=== PATIENT | male | born 1965 | race Caucasian/White ===

== ENCOUNTER 2020-11-05 06:02 | Inpatient (IN) | payer BC ==
[~2020-11-05] VITALS: Ht 170.2 cm; Wt 108.4 kg
[~2020-11-05 06:02] MED LIST: IRBE150T7 PO; LIDOCAINE 1% MDV 20ML VIAL SQ PRN; LR 1,000 ML IV ONE; OMEP10CASR PO; THERTAB52 PO; ceFAZolin SOD 2 GM in IV 1 EA IV ONE
[2020-11-05] MEDS ORDERED: MIDAZOLAM INJ 2MG/2ML VIAL (J2250 PER 1MG) As Ordered ONE (06:46)
[2020-11-05] MEDS ORDERED: HYDROmorphone HCL 2 MG/ML 1ML VIAL (J1170) As Ordered ONE (06:47)
[2020-11-05] MEDS ORDERED: ePHEDrine SULFATE 25 MG/5 ML(5MG/ML) SYRINGE As Ordered ONE (06:47)
[2020-11-05] MEDS ORDERED: ACETAMINOPHEN 1000MG 100ML IV BTL (OFIRMEV) (J0131 PER 10MG) As Ordered ONE (06:47)
[2020-11-05] MEDS ORDERED: PHENYLephrine 500MCG 5ML (100MCG/ML) SYRINGE As Ordered ONE (06:47)
[2020-11-05] MEDS ORDERED: fentaNYL 250 MCG/5 ML INJECTION (J3010) As Ordered ONE (06:47)
[2020-11-05] MEDS ORDERED: ROCURONIUM BROMIDE 50 MG/5 ML VIAL As Ordered ONE ×2 (06:48→12:17)
[2020-11-05] MEDS ORDERED: ONDANSETRON 4MG/2ML VIAL As Ordered ONE (06:48)
[2020-11-05] MEDS ORDERED: LIDOCAINE 2% 100MG/5ML SDV (FOR ANES.) As Ordered ONE (06:48)
[2020-11-05] MEDS ORDERED: propofoL 200 MG/20 ML VIAL As Ordered ONE (06:48)
[2020-11-05] MEDS ORDERED: SUGAMMADEX SODIUM 500 MG/5 ML VIAL (BRIDION) As Ordered ONE (06:48)
[2020-11-05] MEDS ORDERED: dexameTHASONE 4 MG/ML 1ML VIAL (J1100 PER 1MG) As Ordered ONE (06:48)
[2020-11-05] MEDS ORDERED: BUPIVACAINE HCL 0.25% 30ML VIAL As Ordered ONE (07:15)
[2020-11-05] MEDS ORDERED: LIDOCAINE 1% SDV 30ML VIAL As Ordered ONE (07:15)
[2020-11-05] MEDS ORDERED: HEPARIN SOD (PORCINE) 5000UNITS/ML 1ML VIAL/SYRINGE SQ ONE (07:20)
[2020-11-05] MEDS: IRBESARTAN 150MG TAB PO SCH (09:00)
[2020-11-05] MEDS: DOCUSATE SODIUM 100MG CAPSULE PO SCH ×2 (09:00→21:00)
[2020-11-05] MEDS ORDERED: ACETAMINOPHEN TAB 650MG DOSE (2X325MG) PO PRN (12:00)
[2020-11-05] MEDS ORDERED: MORPHINE 2 MG/ML 1ML VIAL (J2270) IV PRN (12:00)
[2020-11-05] MEDS ORDERED: NS 1,000 ML IV SCH (12:00)
[2020-11-05] MEDS ORDERED: ONDANSETRON 4MG/2ML VIAL IV PRN ×2 (12:00→17:45)
[2020-11-05] MEDS ORDERED: PERCOCET 5MG/325MG TAB PO PRN ×2 (12:00)
--- NOTE | 2020-11-05 17:41 | ROOPDOC ---
[facility] Report Of Operation Report of Operation DATE OF PROCEDURE: 11/05/20 PREPROCEDURE DIAGNOSIS: Prostate cancer. POSTPROCEDURE DIAGNOSIS: Prostate cancer. PROCEDURE: Robotic-assisted laparoscopic radical prostatectomy with bilateral pelvic lymph node dissection. SURGEON: Benjamin Dejesus MD RESIDENT ASSISTANT: Eloisa Franco NP ANESTHESIA: General. OPERATIVE INDICATIONS: This is a 55 year old male with clinical T1c Hayward 9 prostate cancer. After a discussion of the options for treatment, he elected to undergo the above procedure. DESCRIPTION OF PROCEDURE: The patient was brought to the operating room and general anesthesia was induced. Prophylactic antibiotics were infused. He was then placed in the dorsal lithotomy position and prepped and draped in the usual sterile fashion. At this point, a Johnson catheter was inserted into the bladder and the balloon was filled with 10 mL of sterile water. We then made a midline incision just above the umbilicus for an 8 mm port. A Veress needle was utilized to achieve pneumoperitoneum. Next, an 8 mm port was inserted into the incision and subsequently a camera was inserted. There were no injuries from the Veress needle or initial trocar placement. At this point, we placed the remaining ports, including a 12 mm teacher's assistant port and then three robotic ports in the usual configuration. Once all the ports were placed, the robot was docked. Lysis of adhesions between the sigmoid colon and abdominal wall was then performed. The bladder was then released from the anterior abdominal wall using electrocautery. Once the bladder was dropped, the fat overlying the prostate was cleared using electrocautery. The superficial dorsal vein was controlled with electrocautery. The endopelvic fascia was opened on both sides and the dorsal venous complex was cleared. Next, a #0 Vicryl [id number] stitch was placed around the dorsal venous complex. Once that was done, the bladder was opened and dissected away from the prostate. At this point, the prostate was lifted up. The vasa deferentia were identified in the midline. They were then ligated and transected. The seminal vesicles were also dissected off bilaterally. The rectum was safely mobilized away from the prostate. Bilateral prostatic pedicles were taken using the Harmonic scalpel. The pedicles were carried towards the apex. After taking care of the pedicles and mobilizing the rectum off the prostate below, the prostate was only connected by the urethra. At this point, the dorsal venous complex was transected with electrocautery. The urethra was then opened and the catheter was withdrawn and the posterior urethra was transected, thus freeing the prostate. At this point, we checked for hemostasis and it did appear very good. Next, we performed bilateral pelvic lymph node dissection. This was done in a standard fashion. The limits of dissection were the iliac vein proximally, the obturator nerve distally, the pelvic sidewall laterally, and the bladder media lly. All lymphatic tissue within these limits was removed. I performed the same procedure on both the right and left sides. Hemostasis was then obtained with bipolar electrocautery. The lymphatic packets were then placed in separate Endo Catch bags for future retrieval. Once hemostasis was confirmed, I then moved on to perform the vesicourethral anastomosis. This was performed with a Quill stitch in a running fashion. Once this was done, the final #20-Portuguese Johnson catheter was placed. The balloon was filled with 15 mL of sterile water. Upon completion of the vesicourethral anastomosis, it was tested by filling the bladder with sterile saline water. The anastomosis appeared to be watertight. At this point, the prostate and seminal vesicles were placed in an Endo Catch bag for future retrieval. Next, a Mohan- Jones drain was brought in through the left robotic port skin site and the drain was positioned anterior to the bladder. The robot was then undocked. A [place]-Cee fascial closure device was utilized to place a #0 Vicryl suture between the fascia of the 12 mm teacher's assistant port. The drain was secured to the skin with #2-0 Ethilon suture. The prostate, as well as the lymphatic packets were then extracted from the camera port site after the skin was e xtended. The fascia in this incision was then closed with a running #0 Vicryl stitch. I then looked back in the abdomen and no intraabdominal contents were caught in the extraction site fascial closure. Next, all the remaining ports were removed and there did not appear to be any bleeding from any of the port sites. The previously placed #0 Vicryl free ties through the teacher's assistant port were then tied down and all incisions were irrigated. All of the incisions were then closed with running subcuticular #4-0 Monocryl sutures. Local anesthesia was applied. Dermabond was then applied to the incisions. This marked the conclusion of the procedure. The patient was then taken out of the dorsal lithotomy position, awakened from anesthesia and transported to the recovery room in stable condition. ESTIMATED BLOOD LOSS: 250 mL. COMPLICATIONS: None. SPECIMENS: Prostate and seminal vesicles, right pelvic lymph nodes, left pelvic lymph nodes. PLAN: The patient will be admitted to the hospital postoperatively, and he will likely be discharged home within the next 1-2 days. BENJAMIN DEJESUS MD Nov 05, 2020 12:22
[2020-11-05] MEDS ORDERED: LR 1,000 ML IV SCH (17:45)
[2020-11-05] MEDS ORDERED: fentaNYL 100 MCG/2 ML INJECTION (J3010) IV PRN (17:45)
[2020-11-05] MEDS ORDERED: oxyCODONE 5MG TAB PO PRN (17:45)
[2020-11-05] MEDS ORDERED: HYDROMORPHONE HCL 0.5 MG/ 0.5 ML SYRINGE (J1170 PER 1) IV PRN (17:55)
[2020-11-05 18:14] LABS: HEMATOCRIT 45.3 % (42.0-52.0); MEAN CORPUSCULAR HEMOGLOBIN 31.4 pg (27.0-33.0); MEAN CORPUSCULAR HGB CONC 33.1 g/dl (32.0-36.5); MEAN CORPUSCULAR VOLUME 94.8 fl (80.0-96.0); PLATELET COUNT, AUTOMATED 273 10^3/uL (150-450); RED BLOOD COUNT 4.78 10^6/uL (4.30-6.10); WHITE BLOOD COUNT 16.2 10^3/uL (4.0-10.0)
[2020-11-05 18:26] LABS: BLOOD UREA NITROGEN 15 MG/DL (7-18); CALCIUM LEVEL 8.3 MG/DL (8.5-10.1); CARBON DIOXIDE LEVEL 23 MEQ/L (21-32); CHLORIDE LEVEL 106 MEQ/L (98-107); CREATININE FOR GFR 1.26 MG/DL (0.70-1.30); GLOMERULAR FILTRATION RATE > 60.0 (>56); GLUCOSE, FASTING 163 MG/DL (70-100); POTASSIUM SERUM 3.7 MEQ/L (3.5-5.1); SODIUM LEVEL 139 MEQ/L (136-145)
[2020-11-05 19:30] VITALS: BP 144/90
[2020-11-05 20:00] VITALS: BP 146/88
[2020-11-05 20:35] VITALS: BP 147/92
[2020-11-05] MEDS: ceFAZolin SOD 1 GM in D5W MINI-BAG PLUS 50 ML IV SCH (21:10)
[2020-11-05] MEDS: HEPARIN SOD (PORCINE) 5000UNITS/ML 1ML VIAL/SYRINGE SC SCH (22:00)
[2020-11-05 23:00] VITALS: BP 144/100
[2020-11-05 23:19] VITALS: BP 141/89
[2020-11-06 01:06] VITALS: BP 157/96
[2020-11-06] MEDS: ceFAZolin SOD 1 GM in D5W MINI-BAG PLUS 50 ML IV SCH (04:09)
[2020-11-06] MEDS: HEPARIN SOD (PORCINE) 5000UNITS/ML 1ML VIAL/SYRINGE SC SCH (06:09)
[2020-11-06 06:13] VITALS: BP 157/99
[2020-11-06 06:56] LABS: HEMATOCRIT 42.7 % (42.0-52.0); HEMOGLOBIN 14.4 g/dl (13.5-17.5); MEAN CORPUSCULAR HEMOGLOBIN 31.8 pg (27.0-33.0); MEAN CORPUSCULAR HGB CONC 33.7 g/dl (32.0-36.5); MEAN CORPUSCULAR VOLUME 94.3 fl (80.0-96.0); PLATELET COUNT, AUTOMATED 259 10^3/uL (150-450); RED BLOOD COUNT 4.53 10^6/uL (4.30-6.10); WHITE BLOOD COUNT 16.3 10^3/uL (4.0-10.0)
[2020-11-06 07:21] LABS: BLOOD UREA NITROGEN 16 MG/DL (7-18); CALCIUM LEVEL 8.5 MG/DL (8.5-10.1); CARBON DIOXIDE LEVEL 27 MEQ/L (21-32); CHLORIDE LEVEL 106 MEQ/L (98-107); GLOMERULAR FILTRATION RATE > 60.0 (>56); GLUCOSE, FASTING 131 MG/DL (70-100); POTASSIUM SERUM 4.3 MEQ/L (3.5-5.1); SODIUM LEVEL 137 MEQ/L (136-145)
[2020-11-06] MEDS ORDERED: oxyBUTYnin 5 MG TAB PO PRN (07:30)
--- NOTE | 2020-11-06 07:46 | IPNPDOC ---
Subjective Review oF Systems Chief Complaint The patient is a 55-year-old male admitted with a reason for visit of Prostate Cancer. Events since Last Encounter No acute events o/n. Noting a moderate amount of lower pelvic pressure this morning. Patient also had the onset of moderate L calf pain that radiated up his leg. Has not ambulated yet. Denies n/v. No f/c/ns. Objective Physical Examination General Exam: Alert, No Acute Distress ABDOMEN EXAM: Soft, Tenderness (minimal), Other (incicions clean/dry/intact; FLORENCIO w/ serosanguinous output) Extremity Exam: Other (no calf tenderness); No: Edema, Swelling Skin Exam: Nl turgor and temperature Neuro Exam: Normal Speech Psych Exam: Mental status NL Other physical findings catheter draining yellow urine Vital Signs/I&O Vital Signs Date Time Temp Pulse Resp B/P (MAP) Pulse Ox O2 Delivery O2 Flow Rate FiO2 11/06/20 06:13 98.3 108 18 157/99 (118) 98 Nasal Cannula 3.0 I&O- Last 24 Hours up to 6 AM 11/06/20 06:00 Intake Total 3435 ml Output Total 2160 ml Balance 1275 ml Laboratory Data Labs 24H Laboratory Tests 2 11/05/20 17:48: Nucleated Red Blood Cells % (auto) 0.0, Anion Gap 10, Glomerular Filtration Rate > 60.0, Calcium Level 8.3L 11/06/20 06:22: Nucleated Red Blood Cells % (auto) 0.0, Anion Gap 4L, Glomerular Filtration Rate > 60.0, Calcium Level 8.5 CBC/BMP Laboratory Tests 11/05/20 17:48 11/06/20 06:22 Assessment/Plan Date Seen The patient was seen on 11/06/20. Patient Summary This is a 55 y/o M POD1 s/p RALP w/ BPLND. His labs are w/i normal postop limits. Good UOP. Normal FLORENCIO output. I suspect his LLE pain was from cramping from being in bed since yesterday morning. His pain was gone this morning. His exam was unremarkable. Plan/VTE VTE Prophylaxis Ordered?: Yes VTE Exclusion Mechanical Proph: N/A:VTE Prophy Ordered VTE Exclusion Pharmacological: N/A:VTE Prophy Ordered Plan/Urinary Catheter Urinary Catheter: Other Catheter: (catheter needs to stay in for at least 7 days for healing of the vesicourethral anastomosis) Plan - d/c IVF - percocet prn pain - oxybutynin prn bladder spasms - wean O2 - continue home meds - strict I/Os - SCDs in bed - SQH - incentive spirometry - ambulate - clears - ADAT - possible discharge home later today w/ catheter BENJAMIN DEJESUS MD Nov 06, 2020 07:35
[2020-11-06] MEDS: DOCUSATE SODIUM 100MG CAPSULE PO SCH (08:52)
[2020-11-06] MEDS ORDERED: OMEPRAZOLE 20 MG CAP PO SCH (09:00)
[2020-11-06 10:30] VITALS: BP 157/99
[2020-11-06] MEDS: IRBESARTAN 150MG TAB PO SCH (10:30)
[2020-11-06] MEDS ORDERED: CIPR-249 PO (11:49)
[2020-11-06] MEDS ORDERED: PERCOCET PO (11:49)
[2020-11-06] MEDS ORDERED: COLA100C5 PO (11:49)
--- NOTE | 2020-11-06 12:08 | DSES ---
DISCHARGE SUMMARY DATE OF ADMISSION: 11/05/2020 DATE OF DISCHARGE: 11/06/2020 ADMISSION DIAGNOSIS: Prostate cancer. DISCHARGE DIAGNOSIS: Prostate cancer. ADMITTING PHYSICIAN: Dr. Gregor Romero. DISCHARGING PHYSICIAN: Dr. Gregor Romero. PROCEDURES PERFORMED: Robotic-assisted laparoscopic radical prostatectomy with bilateral pelvic lymph node dissection on 11/05/2020. HISTORY OF PRESENT ILLNESS: This is a 55-year-old male with high-risk prostate cancer who underwent the above-listed procedure on 11/05/2020. He was admitted to the hospital postoperatively. HOSPITALIZATION COURSE: The patient was admitted to the hospital after undergoing surgery on 11/05/2020. Immediately postoperatively while on the regular nursing floor he was noted to have increased lower abdominal discomfort as well as moderate to severe left lower extremity pain. The pain in his lower extremity appeared to be due to cramps. By postoperative day #1 the pain had resolved, and the lower abdominal pain had improved. All of his labs during his hospital stay were within acceptable limits. Specifically, his hemoglobin level remained stable at 14.4 on postoperative day #1. His serum creatinine was 1 on postoperative day #1. He had very good urine output throughout his hospital stay and normal output from his Mohan-Jones drain. On postoperative day #1 we got him ambulating, and he ambulated without any difficulty. His diet was advanced, and he tolerated a regular diet. His pain was controlled with oral pain medication. By the afternoon of postoperative day #1 he was deemed ready for discharge home. We removed his Mohan-Jones drain. He was discharged home with his catheter in place with the plan for him to followup in the urology clinic in approximately 1 week for catheter removal and pathology results. AHSAN
== END 2020-11-06 12:45 | disposition home or self-care (01) | DRG 484 ==
LOC: M OR 06:02 → M MS5PR 19:57
PROVIDERS: ADMIT Urology; ATTEND Urology
PROC: 07BC4ZZ Excision of Pelvis Lymphatic, Percutaneous Endoscopic Approach (ICD-10-PCS; 2020-11-05)
PROC: 0VT04ZZ Resection of Prostate, Percutaneous Endoscopic Approach (ICD-10-PCS; principal; 2020-11-05 07:30)
DX: C61 Malignant neoplasm of prostate (principal)